=== PATIENT | male | born 1985 | race Hispanic/Latino ===

== ENCOUNTER 2017-02-08 02:40 | Emergency (ER) | payer SELFPAY ==
[2017-02-08 02:40] VITALS: BMI 27.5
[2017-02-08 02:58] VITALS: RESP 16
[2017-02-08] MEDS ORDERED: Sodium Chloride 0.9% 1,000 ML IV ONE (03:01)
[2017-02-08] MEDS ORDERED: Sodium Chloride 0.9% 1,000 ML ONE (03:19)
[2017-02-08 03:23] LABS: BASO # 0.2 K/uL (0.0-0.2); BASO % 1.7 % (0.0-2.0); EOS % 0.3 % (0.0-4.0); HEMATOCRIT 45.5 % (35.0-51.0); LYMPH # 0.9 K/uL (1.0-4.3); LYMPH % 8.2 % (20.0-40.0); MEAN CELL VOLUME 85.1 fL (80.0-94.0); MEAN CORPUSCULAR HEMOGLOBIN 29.6 pg (27.0-31.0); MEAN CORPUSCULAR HGB CONC 34.8 g/dL (33.0-37.0); MEAN PLATELET VOLUME 7.8 fL (7.2-11.7); MONO # 0.5 K/uL (0.0-0.8); MONO % 4.6 % (0.0-10.0); NRBC % 0.1 % (0.0-2.0); PLATELET COUNT 180 K/uL (130-400); RED CELL DISTRIBUTION WIDTH 13.3 % (11.5-14.5); WHITE BLOOD COUNT 11.3 K/uL (4.8-10.8)
[2017-02-08 03:30] LABS: CHLORIDE 106 mmol/L (98-107); POTASSIUM 3.2 mmol/L (3.6-5.2); SODIUM 141 mmol/L (132-148)
[2017-02-08 03:32] LABS: GFR AFRICAN-AMERICAN > 60
[2017-02-08 03:33] LABS: ALB/GLOB RATIO 1.3 (1.0-2.1); ALKALINE PHOSPHATASE 91 U/L (38-126); ALT/SGPT 42 U/L (21-72); AST/SGOT 35 U/L (17-59); BILIRUBIN,TOTAL 0.9 mg/dL (0.2-1.3); BLOOD UREA NITROGEN 9 mg/dL (9-20); CALCIUM 9.5 mg/dl (8.6-10.4); CARBON DIOXIDE 20 mmol/L (22-30); GLUCOSE,RANDOM 101 mg/dL (75-110); TOTAL PROTEIN 8.6 g/dL (6.3-8.3)
[2017-02-08 03:34] LABS: ALCOHOL SERUM 231 mg/dl (0-10)
[2017-02-08 03:45] LABS: EOSINOPHIL 1 % (0-4); NEUTROPHIL 84 % (50-75); TOTAL CELLS COUNTED 100
[2017-02-08] MEDS ORDERED: Iodixanol 320 MG/ML 100 ML BOTTLE IV ONE (03:54)
[2017-02-08 05:36] VITALS: TEMP 97.4; O2SAT 99
--- NOTE | 2017-02-08 05:59 | C.PDOC ---
History Of Present Illness 31 y/o male c/o LUQ abdominal pain that began today. Patient admits to alcohol abuse. Has conflicting stories that he was brought in by EMS for sleeping outside or called EMS for abdominal pain. Denies fever, or chills. No chest pain or SOB. Time Seen by Provider: 02/08/17 02:58 Chief Complaint (Nursing): Substance Abuse History Per: Patient History/Exam Limitations: no limitations Onset/Duration Of Symptoms: Hrs Current Symptoms Are (Timing): Still Present Suicide/Self Injury Attempted (Context): None Modifying Factor(s): Alcohol Severity: Mild Associated Symptoms: denies: Suicidal Thoughts, Suicidal Plan Past Medical History Reviewed: Historical Data, Nursing Documentation, Vital Signs Vital Signs: Last Vital Signs Temp 97.4 F L 02/08/17 05:35 Pulse 81 02/08/17 05:35 Resp 16 02/08/17 05:35 BP 95/56 L 02/08/17 05:35 Pulse Ox 99 02/08/17 05:59 - Medical History PMH: Hypercholesterolemia Family History: States: Unknown Family Hx - Social History Hx Alcohol Use: Yes Hx Substance Use: No Review Of Systems Except As Marked, All Systems Reviewed And Found Negative. Constitutional: Positive for: Other (Alcohol intoxicated). Negative for: Fever , Chills Cardiovascular: Negative for: Chest Pain Respiratory: Negative for: Shortness of Breath Gastrointestinal: Positive for: Abdominal Pain Psych: Negative for: Suicidal ideation, Other (Homicidal ideation) Physical Exam - Physical Exam Appears: Non-toxic, No Acute Distress, Other (ETOH intoxicated, (+) AOB. No signs of trauma) Skin: Warm, Dry Head: Atraumatic, Normacephalic Chest: Symmetrical Cardiovascular: Rhythm Regular, No Murmur Respiratory: Normal Breath Sounds, No Rales, No Rhonchi, No Wheezing Gastrointestinal/Abdominal: Soft, Tenderness (LUQ, left lower ribs, midclavicular line) Neurological/Psych: Oriented x3 ED Course And Treatment - Laboratory Results Result Diagrams: 02/08/17 03:17 02/08/17 03:17 Lab Interpretation: Abnormal (ETOH 231 H, mild elev leukocytes) O2 Sat by Pulse Oximetry: 99 (RA) Pulse Ox Interpretation: Normal - CT Scan/US abd/pelvis with IV Other Rad Studies (CT/US): Interpreted By Me, Read By Radiologist, Radiology Report Reviewed (neg) CT/US Interpretation: IMPRESSION: No acute findings. Progress Note: IVF/toradol IV Reevaluation Time: 05:57 Reassessment Condition: Improved (sleeping comfortably) Medical Decision Making Medical Decision Making: initially concerned for intoxicated/obtunded pt on street with LUQ pain and tenderness for ? splenic injury, but CT abd/pelvis normal tenderness is more lower L rib/costochondral NSAIDS and ice therapy educated. Disposition Doctor Will See Patient In The: Office Counseled Patient/Family Regarding: Studies Performed, Diagnosis - Disposition Referrals: [facility] [Outside] [facility] [Outside] [facility] [Outside] [facility] [Outside] Ole Jules MD [Staff Provider] - Disposition: HOME/ ROUTINE Disposition Time: 05:58 Condition: GOOD Additional Instructions: sigue con hielo encima del las mona doloridos. Ibuprofeno 400-600 mg cada 6 horas phuong necessario Shonda de abusar el alcohol Instructions: Costochondritis (ED) Forms: [employer] (Lithuanian) Print Language: MAORI - Clinical Impression Clinical Impression: Contusion of rib on left side - Scribe Statement The provider has reviewed the documentation as recorded by the Scribe Julian caldera All medical record entries made by the Scribe were at my direction and personally dictated by me. I have reviewed the chart and agree that the record accurately reflects my personal performance of the history, physical exam, medical decision making, and the department course for this patient. I have also personally directed, reviewed, and agree with the discharge instructions and disposition.
[2017-02-08 06:13] VITALS: BP 100/64; PULSE 96
--- NOTE | 2017-02-08 08:22 | CT ---
PROCEDURE: CT Abdomen and Pelvis with contrast HISTORY: LUQ, intox, ? spleen COMPARISON: None. TECHNIQUE: Contrast dose: 400 mL Visipaque 320. Axial and reformatted coronal and sagittal CT images of the abdomen and pelvis were obtained after IV contrast administration. Radiation dose: Total exam DLP = 220.69 mGy-cm. This CT exam was performed using one or more of the following dose reduction techniques: Automated exposure control, adjustment of the mA and/or kV according to patient size, and/or use of iterative reconstruction technique. FINDINGS: LOWER THORAX: Unremarkable. LIVER: Unremarkable. No gross lesion or ductal dilatation. GALLBLADDER AND BILE DUCTS: Unremarkable. PANCREAS: Unremarkable. No gross lesion or ductal dilatation. SPLEEN: Unremarkable. ADRENALS: Unremarkable. No mass. KIDNEYS AND URETERS: Unremarkable. No hydronephrosis. No solid mass. VASCULATURE: Unremarkable. No aortic aneurysm. BOWEL: Unremarkable. No obstruction. No gross mural thickening. APPENDIX: Normal appendix. PERITONEUM: Unremarkable. No free fluid. No free air. LYMPH NODES: Unremarkable. No enlarged lymph nodes. BLADDER: Mild urinary bladder wall thickening. REPRODUCTIVE: Unremarkable. BONES: No acute fracture. OTHER FINDINGS: None. IMPRESSION: No evidence of cholecystitis pancreatitis diverticulitis or appendicitis. Mild urinary bladder wall thickening. Preliminary report was submitted by [facility].
== END 2017-02-08 06:12 | disposition home or self-care (01) ==
LOC: C.ER 02:40
DX: S20.212A Contusion of left front wall of thorax, initial encounter (principal); X58.XXXA Exposure to other specified factors, initial encounter
CPT/HCPCS: 74177; 80053; 83690; 85025; 96361; 96374; 99284; G0480; J1885; J7040; Q9967

== ENCOUNTER 2017-12-28 21:29 | Emergency (ER) | payer SELFPAY ==
[2017-12-28 21:30] VITALS: BMI 27.5
[2017-12-28] MEDS ORDERED: Sodium Chloride 0.9% 1,000 ML IV ONE ×2 (21:52)
[2017-12-28] MEDS ORDERED: Multivitamin (MVI) 10 ML, Thiamine 100 MG, Folic Acid 1 MG in Sodium Chloride 0.9% 1,00... IV ONE (21:53)
--- NOTE | 2017-12-28 21:54 | C.PDOC ---
History Of Present Illness Patient seen tonite due to history of alcohol intKE FOR TE PAST 3- 4 DAYS. lAST ALCOHOL INTAKE WAS THIS AFTERNOON. COMPLAINING IF STIFFNESS OF BOTH HANDS. Chief Complaint (Nursing): Substance Abuse History Per: Patient History/Exam Limitations: no limitations Onset/Duration Of Symptoms: Days Current Symptoms Are (Timing): Still Present Suicide/Self Injury Attempted (Context): None Modifying Factor(s): Alcohol Severity: Mild Pain Scale Rating Of: 2 Associated Symptoms: Agitation Involuntary Hold By: None Recent travel outside of the [place]: No Additional History Per: Patient Past Medical History Vital Signs: Last Vital Signs Temp 98.8 F 12/28/17 21:39 Pulse 88 12/28/17 23:43 Resp 16 12/28/17 23:43 BP 130/74 12/28/17 23:43 Pulse Ox 96 12/28/17 21:59 - Medical History PMH: Hypercholesterolemia Other PMH: ALCOHOL ABUSE Surgical History: No Surg Hx Family History: States: Unknown Family Hx - Social History Hx Alcohol Use: Yes Hx Substance Use: No - Immunization History Hx Tetanus Toxoid Vaccination: No Hx Influenza Vaccination: No Hx Pneumococcal Vaccination: No Review Of Systems Constitutional: Negative for: Fever, Chills, Sweats Eyes: Negative for: Pain, Vision Change, Conjunctivae Inflammation ENT: Negative for: Ear Pain, Ear Discharge, Nose Pain, Nose Discharge Cardiovascular: Negative for: Chest Pain, Palpitations, Orthopnea, Paroxysmal Noc. Dyspnea Respiratory: Negative for: Cough, Shortness of Breath, Hemoptysis Gastrointestinal: Positive for: Abdominal Pain (epigastric area). Negative for : Nausea, Vomiting Genitourinary: Negative for: Dysuria, Frequency, Incontinence Musculoskeletal: Negative for: Neck Pain, Shoulder Pain, Arm Pain Skin: Negative for: Rash Neurological: Negative for: Weakness, Numbness, Incoordination, Change in Speech Psych: Negative for: Anxiety, Depression Physical Exam - Physical Exam Appears: Non-toxic, No Acute Distress Skin: Normal Color Head: Atraumatic, Normacephalic, No Tenderness Eye(s): bilateral: Normal Inspection, PERRL, EOMI Nose: Normal Oral Mucosa: Moist, No Dry Tongue: Normal Appearing Lips: Normal Appearing Throat: Normal Neck: Normal Chest: Symmetrical, No Deformity, No Tenderness, No Ecchymosis, No Subcutaneous Emphysema Respiratory: Normal Breath Sounds Gastrointestinal/Abdominal: Tenderness (mild tenderness), No Organomegaly, No Mass, No Distention, No Guarding, No Rebound Back: Normal Inspection Extremity: Other (carpal spasm) ED Course And Treatment - Laboratory Results Result Diagrams: 12/28/17 21:57 12/28/17 21:57 O2 Sat by Pulse Oximetry: 96 Disposition Counseled Patient/Family Regarding: Diagnosis - Disposition Referrals: Non [facility] Provider, [Non-Staff] - [facility] [Outside] Disposition: HOME/ ROUTINE Disposition Time: 02:47 Condition: STABLE Prescriptions: chlordiazePOXIDE [Chlordiazepoxide HCl] 10 mg PO Q8 #10 cap Instructions: Alcohol Abuse and Alcoholism (DC) Forms: [facility] (Nauruan), [facility] Congolese Print Language: CHILEAN - POA Present On Arrival: None - Clinical Impression Clinical Impression: Alcohol abuse
[2017-12-28 22:10] LABS: BASO # 0.1 K/uL (0.0-0.2); BASO % 0.6 % (0.0-2.0); EOS % 0.1 % (0.0-4.0); HEMOGLOBIN 15.3 g/dL (12.0-18.0); LYMPH # 1.9 K/uL (1.0-4.3); LYMPH % 13.4 % (20.0-40.0); MEAN CELL VOLUME 87.6 fL (80.0-94.0); MEAN CORPUSCULAR HEMOGLOBIN 30.1 pg (27.0-31.0); MEAN CORPUSCULAR HGB CONC 34.4 g/dL (33.0-37.0); MEAN PLATELET VOLUME 6.8 fL (7.2-11.7); MONO # 0.9 K/uL (0.0-0.8); MONO % 6.5 % (0.0-10.0); NEUT % 79.4 % (50.0-75.0); RBC 5.08 Mil/uL (4.40-5.90); RED CELL DISTRIBUTION WIDTH 13.2 % (11.5-14.5); WHITE BLOOD COUNT 13.8 K/uL (4.8-10.8)
[2017-12-28 22:20] LABS: ABG ALLEN TEST POS; ARTERIAL BLOOD GAS HCO3 24.4 mmol/L (21-28); ARTERIAL BLOOD GAS HEMOGLOBIN 13.9 g/dL (11.7-17.4); ARTERIAL BLOOD GAS O2 SAT 96.5 % (95-98); ARTERIAL BLOOD GAS PCO2 35 mm/Hg (35-45); ARTERIAL BLOOD GAS PH 7.43 (7.35-7.45); ARTERIAL BLOOD GAS PO2 74 mm/Hg (80-100); ARTERIAL BLOOD GAS TCO2 24.3 mmol/L (22-28)
[2017-12-28 22:20] LABS: ALB/GLOB RATIO 1.7 (1.0-2.1); ALBUMIN 5.3 g/dL (3.5-5.0); ALT/SGPT 68 U/L (21-72); AST/SGOT 54 U/L (17-59); BLOOD UREA NITROGEN 11 mg/dL (9-20); CALCIUM 9.5 mg/dl (8.6-10.4); GFR NON-AFRICAN AMERICAN > 60; LIPASE 59 U/L (23-300)
[2017-12-29 00:59] LABS: SQUAMOUS EPITHIAL < 1 /hpf (0-5); URINE BILIRUBIN NEGATIVE (NEGATIVE); URINE BLOOD NEGATIVE (NEGATIVE); URINE CLARITY Clear (Clear); URINE COLOR Yellow (YELLOW); URINE GLUCOSE (UA) NORMAL (Normal); URINE LEUKOCYTE ESTERASE NEG Leu/uL (Negative); URINE PROTEIN NEGATIVE (NEGATIVE); URINE UROBILINOGEN NORMAL mg/dL (0.2-1.0)
[2017-12-29 01:11] LABS: BARBITURATES, UR NEGATIVE (NEGATIVE); BENZODIAZEPINES, UR NEGATIVE (NEGATIVE); OPIATES, UR NEGATIVE (NEGATIVE); PHENCYCLIDINE, UR NEGATIVE (NEGATIVE)
[2017-12-29 03:18] VITALS: BP 110/71; PULSE 87; RESP 20; TEMP 98; O2SAT 100
== END 2017-12-29 03:18 | disposition home or self-care (01) ==
LOC: C.ER 21:29 → SUPCPDRO 21:29 → C.ER 12-29 03:18
DX: F10.10 Alcohol abuse, uncomplicated (principal); Y90.9 Presence of alcohol in blood, level not specified
CPT/HCPCS: 80053; 81001; 82803; 82948; 83690; 85025; 96361; 96365; 96375; 99285; G0480; J3411; J7030